=== PATIENT | male | born 1995 | race Caucasian/White ===

== ENCOUNTER 2017-01-11 20:42 | Emergency (ER) | payer MEDICAID ==
[2017-01-11 21:39] LABS: BASOPHILS 0.4 % (0.0-2.0); HEMOGLOBIN 15.4 g/dL (13.5-17.5); IMMATURE GRANULOCYTES 0.3 % (0-5); LYMPHOCYTES 17.3 % (15-50); MCHC 33.5 g/dL (31.0-37.0); MCV 89.7 fL (80.0-100.0); MEAN PLATELET VOLUME 9.7 fL (7.4-10.4); PLATELET COUNT 323 10x3/uL (130-400); RBC 5.13 10x6/uL (4.20-6.10); RDW 13.4 % (11.5-14.5); WBC 12.5 10x3/uL (4.8-10.8)
[2017-01-11 21:51] LABS: ALKALINE PHOSPHATASE 62 U/L (46-116); ALT (SGPT) 134 U/L (10-68); BILIRUBIN - TOTAL 0.25 mg/dL (0.2-1.3); CALC OSMOLALITY 279 mosm/kg (275-300); CALCIUM 8.8 mg/dL (8.5-10.1); CARBON DIOXIDE 28.4 mmol/L (21.0-32.0); CHLORIDE - SERUM 103 mmol/L (98-107); GLUCOSE 102 mg/dL (74-106); PROTEIN - SERUM 8.6 g/dL (6.4-8.2); SODIUM 140 mmol/L (136-145); UREA NITROGEN 15 mg/dL (7-18); eGFR NON AFRICAN AMERICAN > 90 mL/min (90-120)
== END 2017-01-11 23:45 | disposition other institution (70) ==
LOC: D.ER 20:42
PROVIDERS: Emergency Medicine
DX: F43.23 Adjustment disorder with mixed anxiety and depressed mood (principal); F43.20 Adjustment disorder, unspecified

== ENCOUNTER 2019-05-15 20:40 | Emergency (ER) | payer MEDICAID ==
[~2019-05-15] VITALS: Ht 167.6 cm; Wt 101.4 kg
[2019-05-15 20:54] VITALS: Ht 167.6 cm; Wt 101.4 kg
[2019-05-15] MEDS ORDERED: BUSPAR10 MG PO (20:55)
[2019-05-15] MEDS ORDERED: LEXAPRO10 MG PO (20:56)
[2019-05-15] MEDS ORDERED: DEPAKOTE500 MG PO (20:56)
--- NOTE | 2019-05-15 21:08 | NUR ---
PT ASSESSED A HIGH RISK. RESOURCES GIVEN AND SAFETY PLAN INITIATED. ENVIRONMENTAL CHECKLIST COMPLETED. PT IN SCRUBS AND IN SAFE ROOM. ALL BELONGINGS REMOVED AND PUT AT NURSES STATION. PT STATED HE WAS RELEASED FROM [facility] TODAY, BUT WAS NOT READY FOR DISCHARGE. HE STATED, "THEY WOULDN'T LISTEN TO ME." PT HAS MEDICATIONS FOR HIS DEPRESSION AND STATED THAT HE HAD TAKEN THEM TODAY. PT LIVES AT [facility]. PT STATES THAT HE HAS NEVER ATTEMPTED SUICIDE BUT HAS HAD THOUGHTS. HE THOUGHT ABOUT HANGING HIS SELF. DR. FRAZIER AND ATTENDING NOTIFIED OF ASSESSMENT AND 1:1 OBSERVATION ORDERED.
[2019-05-15 22:13] LABS: UDS - AMPHET NEGATIVE QUAL (NEGATIVE); UDS - BARB NEGATIVE QUAL (NEGATIVE); UDS - BENZO NEGATIVE QUAL (NEGATIVE); UDS - COCAINE NEGATIVE QUAL (NEGATIVE); UDS - OPIATE NEGATIVE QUAL (NEGATIVE); UDS - PCP NEGATIVE QUAL (NEGATIVE); UDS - THC NEGATIVE QUAL (NEGATIVE)
[2019-05-15 22:21] LABS: BASOPHILS 0.1 % (0-2); EOSINOPHILS 1.9 % (0-7); HEMATOCRIT 43.4 % (42.0-54.0); HEMOGLOBIN 14.8 g/dL (13.5-17.5); IMMATURE GRANULOCYTES 0.2 % (0-5); LYMPHOCYTES 32.4 % (15-50); MCH 30.8 pg (26.0-34.0); MCHC 34.1 g/dL (31.0-37.0); MCV 90.4 fL (80.0-100.0); MEAN PLATELET VOLUME 8.9 fL (7.4-10.4); MONOCYTES 7.5 % (2-11); NEUTROPHILS 57.9 % (40-80); PLATELET COUNT 232 10x3/uL (130-400); RDW 13.3 % (11.5-14.5); WBC 8.5 10x3/uL (4.8-10.8)
[2019-05-15 22:22] LABS: APPEARANCE CLEAR (CLEAR); BILIRUBIN NEGATIVE (NEGATIVE); COLOR YELLOW (YELLOW); GLUCOSE NEGATIVE (NEGATIVE); KETONE NEGATIVE (NEGATIVE); NITRITE NEGATIVE (NEGATIVE); PROTEIN NEGATIVE (NEGATIVE); SPECIFIC GRAVITY 1.015 (1.005-1.020); UROBILINOGEN NORMAL (NORMAL)
[2019-05-15 22:39] LABS: ALBUMIN 3.5 g/dL (3.4-5.0); ALKALINE PHOSPHATASE 33 U/L (46-116); ALT (SGPT) 26 U/L (10-68); BILIRUBIN - TOTAL 0.09 mg/dL (0.2-1.3); CALC OSMOLALITY 289 mosm/kg (275-300); CALCIUM 8.9 mg/dL (8.5-10.1); CARBON DIOXIDE 29.1 mmol/L (21.0-32.0); CHLORIDE - SERUM 109 mmol/L (98-107); CREATININE - SERUM 0.8 mg/dL (0.6-1.3); GLUCOSE 116 mg/dL (74-106); MAGNESIUM - SERUM 2.1 mg/dL (1.8-2.4); POTASSIUM - SERUM 4.2 mmol/L (3.5-5.1); PROTEIN - SERUM 7.5 g/dL (6.4-8.2); SODIUM 145 mmol/L (136-145); UREA NITROGEN 12 mg/dL (7-18); eGFR NON AFRICAN AMERICAN > 90 mL/min (90-120)
[2019-05-16 02:18] VITALS: BP 130/84
== END 2019-05-16 02:22 ==
LOC: D.ER 20:40
PROVIDERS: Emergency Medicine
DX: R45.851 Suicidal ideations (principal); F32.9 Major depressive disorder, single episode, unspecified